=== PATIENT | female | born 1995 ===

== ENCOUNTER 2023-09-28 06:54 | Emergency (ER) | payer SELFPAY ==
[~2023-09-28] VITALS: Ht 165.1 cm; Wt 58.0 kg
[2023-09-28 07:08] VITALS: BP 130/85
[2023-09-28] MEDS ORDERED: AMOXICILLIN500 M2 PO (07:23)
[2023-09-28] MEDS ORDERED: CLINDAMYCIN300 M1 PO (07:23)
[2023-09-28] MEDS ORDERED: ACETAMINOPHEN 500 MG TAB PO ONE (07:25)
[2023-09-28] MEDS ORDERED: KETOROLAC TROMETHAMINE 30 MG/ML SDV IM ONE (07:25)
[2023-09-28 07:30] VITALS: BP 110/76
== END 2023-09-28 07:48 | disposition home or self-care (01) | DRG 159 ==
LOC: ED 06:54
DX: K08.89 Other specified disorders of teeth and supporting structures (principal); F17.210 Nicotine dependence, cigarettes, uncomplicated

== ENCOUNTER 2023-10-07 07:02 | Emergency (ER) | payer SELFPAY ==
[~2023-10-07] VITALS: Ht 165.1 cm; Wt 72.0 kg
[2023-10-07] VITALS (8 sets, daily range): BP systolic 91–125; BP diastolic 40–102
[~2023-10-07 07:02] MED LIST: AMOXICILLIN500 M2 PO; CLINDAMYCIN300 M1 PO
[2023-10-07] MEDS ORDERED: ONDANSETRON HCl 4 MG/2 ML SDV IV ONE (07:20)
[2023-10-07] MEDS ORDERED: SODIUM CHLORIDE 0.9% 1,000 ML IV ONE (07:20)
[2023-10-07] MEDS ORDERED: KETOROLAC TROMETHAMINE 30 MG/ML SDV IV ONE (07:20)
[2023-10-07] MEDS ORDERED: HYDROmorphone HCL 2 MG/AMP IV ONE (07:50)
[2023-10-07 07:55] LABS: ALBUMIN 4.5 g/dL (3.2-5.0); BILIRUBIN, TOTAL 0.6 mg/dL (0.02-1.3); CREATININE 0.8 mg/dL (0.5-1.0); POTASSIUM 3.9 mmol/l (3.5-5.1); TOTAL PROTEIN 7.5 g/dL (6.3-8.2)
[2023-10-07 07:58] LABS: BASO% 0.2 % (0-3); EOS% 0.1 % (0-8); HEMATOCRIT 38.1 % (37.0-47.0); HEMOGLOBIN 12.3 g/dl (12.0-16.0); IMMATURE GRANULOCYTES 0.6 % (0.0-5.0); LYMPH% 14.1 % (15-41); MEAN CELL VOLUME 86.2 fL CALC (80.0-100.0); MEAN CORPUSCULAR HGB 27.8 pG CALC (26.0-32.0); MEAN CORPUSCULAR HGB CONC 32.3 g/dL CAL (32.0-36.0); MONO% 5.9 % (2-13); NEUT# 7.14 thou/uL (2.00-7.15); NEUT% 79.1 % (42-76); RED BLOOD COUNT 4.42 mill/uL (4.20-5.60); RED CELL DISTRI WIDTH 14.6 % (11.5-15.5)
== END 2023-10-07 09:41 | disposition home or self-care (01) | DRG 761 ==
LOC: ED 07:02
PROVIDERS: Family Medicine
DX: N94.6 Dysmenorrhea, unspecified (principal)